=== PATIENT | female | born 1945 | race African-American/Black ===

== ENCOUNTER 2021-10-30 12:24 | Inpatient (IN) | payer MEDICARE, OTHER ==
[~2021-10-30] VITALS: Ht 154.9 cm; Wt 68.5 kg
[2021-10-30] MEDS ORDERED: MORPHINE SULFATE 4 MG/ML CPJ (NOT FOR IM USE) IV STA (12:46)
[2021-10-30 13:21] LABS: HEMATOCRIT. 35.3 % (36.0-48.0); HEMOGLOBIN. 11.8 g/dL (12.0-16.0); MEAN CORPUSCULAR HEMOGLOBIN 30.2 pg (28.0-32.0); MEAN CORPUSCULAR VOLUME 90.4 fL (81.0-99.0); PLATELET 308 x1000/uL (130-400); RED CELL DISTRIBUTION WIDTH 16.7 % (11.6-14.6)
[2021-10-30 13:26] LABS: CHLORIDE 98 mEq/L (98-107)
[2021-10-30 13:47] LABS: PLATELET ESTIMATE NORMAL
[2021-10-30] MEDS ORDERED: MORPHINE SULFATE 4 MG/ML CPJ (NOT FOR IM USE) IV ONE (18:00)
[2021-10-30 22:05] VITALS: BP 141/66
[2021-10-30 22:07] VITALS: BP 141/66
[2021-10-30] MEDS ORDERED: DEXTROSE 50% WATER 50ML SYRINGE IV PRN (23:30)
[2021-10-30] MEDS ORDERED: NALOXONE HCL 0.4MG/ML VIAL IV PRN (23:45)
[2021-10-31] VITALS: BP 124/66
[2021-10-31] MEDS: MORPHINE SULFATE 2 MG/ML CPJ (NOT FOR IM USE) IV PRN ×4 (00:11→20:45)
[2021-10-31] MEDS ORDERED: HYDR25TA MT (01:30)
[2021-10-31] MEDS ORDERED: MECO10005 (01:30)
[2021-10-31] MEDS ORDERED: SIMV10TA97 MT (01:30)
[2021-10-31] MEDS ORDERED: GABA-532 PO (01:30)
[2021-10-31] MEDS ORDERED: ASPI-1497 PO (01:30)
[2021-10-31] MEDS ORDERED: BENA20TA10 PO (01:30)
[2021-10-31] MEDS ORDERED: METF-414 MT (01:30)
[2021-10-31] MEDS: DEXT 5%/0.45% NACL 1000ML 1,000 ML IV SCH ×2 (01:43→12:50)
[2021-10-31 04:00] VITALS: BP 129/78
[2021-10-31] MEDS: BLOOD SUGAR DIAGNOSTIC STRIP TEST SCH ×4 (06:41→21:21)
[2021-10-31] MEDS: INSULIN LISPRO 100 UNITS/ML SUBCUT SCH ×4 (07:50→21:00)
[2021-10-31 08:00] VITALS: BP 123/74
[2021-10-31] MEDS: GABAPENTIN 100MG CAPSULE PO SCH ×2 (09:00→16:35)
[2021-10-31] MEDS: ASPIRIN 81MG TABLET PO SCH (09:00)
[2021-10-31] MEDS: CYANOCOBALAMIN 100MCG TABLET PO SCH (09:00)
[2021-10-31] MEDS ORDERED: CEFTRIAXONE 1 G PREMIX 50 ML IV SCH (11:30)
[2021-10-31 12:00] VITALS: BP 142/79
[2021-10-31] MEDS: CEFTRIAXONE 1,000 MG in DEXTROSE 5% WATER 50 ML IV SCH (12:51)
[2021-10-31 15:53] LABS: BASOPHILS % 0.2 % (0.0-2.0); EOSINOPHILS % 1.2 % (0.0-5.0); HEMATOCRIT. 34.1 % (36.0-48.0); HEMOGLOBIN. 11.7 g/dL (12.0-16.0); LYMPHOCYTES % 10.2 % (20.0-50.0); MEAN CORPUSCULAR HEMOGLOBIN 30.8 pg (28.0-32.0); MEAN CORPUSCULAR VOLUME 89.8 fL (81.0-99.0); MEAN PLATELET VOLUME 7.5 fl (7.4-10.4); MONOCYTES % 6.9 % (2.0-8.0); NEUTROPHILS % 81.5 % (40.0-76.0); PLATELET 273 x1000/uL (130-400); RED CELL DISTRIBUTION WIDTH 16.7 % (11.6-14.6)
[2021-10-31 15:58] LABS: PROTHROMBIN TIME 10.4 sec (9.6-11.0)
[2021-10-31 16:00] VITALS: BP 125/67
[2021-10-31 16:05] LABS: CHLORIDE 98 mEq/L (98-107)
[2021-10-31 16:19] LABS: HDL CHOLESTEROL 127 mg/dL (40-59); LDL CHOLESTEROL 54 mg/dL (5-100)
[2021-10-31] MEDS: ENOXAPARIN 40MG/0.4ML SYR SUBCUT SCH (16:34)
[2021-10-31 20:00] VITALS: BP 140/85
[2021-10-31] MEDS: AMITRIPTYLINE 25MG TABLET PO SCH (21:20)
[2021-10-31] MEDS: FAMOTIDINE 20MG TABLET PO SCH (21:20)
[2021-11-01] VITALS: BP 140/84
[2021-11-01] MEDS: DEXT 5%/0.45% NACL 1000ML 1,000 ML IV SCH ×2 (01:09→13:13)
[2021-11-01 04:00] VITALS: BP 121/81
[2021-11-01] MEDS: BLOOD SUGAR DIAGNOSTIC STRIP TEST SCH ×4 (06:33→21:07)
[2021-11-01] MEDS: INSULIN LISPRO 100 UNITS/ML SUBCUT SCH ×4 (07:50→21:00)
[2021-11-01 08:00] VITALS: BP 116/69
[2021-11-01 08:38] LABS: BASOPHILS % 0.2 % (0.0-2.0); EOSINOPHILS % 2.9 % (0.0-5.0); HEMATOCRIT. 33.9 % (36.0-48.0); HEMOGLOBIN. 11.6 g/dL (12.0-16.0); LYMPHOCYTES % 18.3 % (20.0-50.0); MEAN CORPUSCULAR HEMOGLOBIN 31.3 pg (28.0-32.0); MEAN CORPUSCULAR VOLUME 91.5 fL (81.0-99.0); MEAN PLATELET VOLUME 7.4 fl (7.4-10.4); MONOCYTES % 9.1 % (2.0-8.0); NEUTROPHILS % 69.5 % (40.0-76.0); PLATELET 262 x1000/uL (130-400); RED CELL DISTRIBUTION WIDTH 16.8 % (11.6-14.6)
[2021-11-01] MEDS: CYANOCOBALAMIN 100MCG TABLET PO SCH (09:35)
[2021-11-01] MEDS: GABAPENTIN 100MG CAPSULE PO SCH ×2 (09:35→17:41)
[2021-11-01] MEDS: CEFTRIAXONE 1,000 MG in DEXTROSE 5% WATER 50 ML IV SCH (12:46)
[2021-11-01] MEDS: MORPHINE SULFATE 2 MG/ML CPJ (NOT FOR IM USE) IV PRN (19:17)
[2021-11-01 20:00] VITALS: BP 118/74
[2021-11-01] MEDS: AMITRIPTYLINE 25MG TABLET PO SCH (21:06)
[2021-11-01] MEDS: FAMOTIDINE 20MG TABLET PO SCH (21:07)
[2021-11-02] VITALS: BP 103/71
[2021-11-02] MEDS: DEXT 5%/0.45% NACL 1000ML 1,000 ML IV SCH ×2 (02:58→15:00)
[2021-11-02 04:00] VITALS: BP 129/81
[2021-11-02 06:25] LABS: BASOPHILS % 0.5 % (0.0-2.0); EOSINOPHILS % 3.2 % (0.0-5.0); HEMATOCRIT. 34.6 % (36.0-48.0); HEMOGLOBIN. 11.7 g/dL (12.0-16.0); LYMPHOCYTES % 20.8 % (20.0-50.0); MEAN CORPUSCULAR HEMOGLOBIN 31.3 pg (28.0-32.0); MEAN CORPUSCULAR VOLUME 92.6 fL (81.0-99.0); MEAN PLATELET VOLUME 7.2 fl (7.4-10.4); MONOCYTES % 8.6 % (2.0-8.0); NEUTROPHILS % 66.9 % (40.0-76.0); PLATELET 264 x1000/uL (130-400); RED BLOOD CELL COUNT 3.74 mill/uL (4.2-5.4); RED CELL DISTRIBUTION WIDTH 16.2 % (11.6-14.6)
[2021-11-02] MEDS: INSULIN LISPRO 100 UNITS/ML SUBCUT SCH ×4 (07:50→21:00)
[2021-11-02 08:00] VITALS: BP 114/61
[2021-11-02] MEDS: BLOOD SUGAR DIAGNOSTIC STRIP TEST SCH ×4 (08:06→21:02)
[2021-11-02] MEDS: GABAPENTIN 100MG CAPSULE PO SCH ×2 (09:00→17:00)
[2021-11-02] MEDS: CYANOCOBALAMIN 100MCG TABLET PO SCH (09:00)
[2021-11-02] MEDS ORDERED: FENTANYL CITRATE/PF 50MCG/ML 2ML VIAL ONE ×2 (10:15→10:16)
[2021-11-02] MEDS ORDERED: ROCURONIUM BROMIDE 10MG/ML VIAL 5ML IV ONE (10:15)
[2021-11-02] MEDS ORDERED: NEOSTIGMINE METHYLSULFATE 1MG/ML 10 ML VIAL ONE (10:15)
[2021-11-02] MEDS ORDERED: PHENYLEPHRINE HCL 10 MG/ML 1ML (IV VIAL) IV ONE (10:16)
[2021-11-02] MEDS ORDERED: SUCCINYLCHOLINE CHLORIDE 200MG/10ML IV ONE (10:16)
[2021-11-02] MEDS ORDERED: GLYCOPYRROLATE 0.2 MG/ML 2ML VIAL ONE (10:16)
[2021-11-02] MEDS ORDERED: SODIUM CHLORIDE 0.9% 10ML VIAL ONE (10:16)
[2021-11-02] MEDS ORDERED: MIDAZOLAM HCL 2 MG/2 ML VIAL ONE (10:16)
[2021-11-02] MEDS ORDERED: CEFAZOLIN SODIUM 1000MG/VIAL ONE (10:16)
[2021-11-02] MEDS ORDERED: ONDANSETRON HCL 4MG/2ML INJ ONE (10:16)
[2021-11-02] MEDS ORDERED: METOCLOPRAMIDE HCL 10MG/2ML VIAL ONE (10:16)
[2021-11-02] MEDS ORDERED: PROPOFOL 200MG/20ML VIAL IV ONE (10:16)
[2021-11-02] MEDS ORDERED: LIDOCAINE HCL/EPINEPHRINE 1%-EPI 1:100,000 20 ML VIAL ONE ×2 (10:27→10:28)
[2021-11-02] MEDS ORDERED: MORPHINE SULFATE/PF 1MG/ML 10ML AMP ONE (10:27)
[2021-11-02] MEDS ORDERED: ROPIVACAINE HCL 10MG/ML 20 ML VIAL EPI ONE (10:28)
[2021-11-02] MEDS ORDERED: EPINEPHRINE 1:1000 1 MG/ML AMP ONE (10:28)
[2021-11-02] MEDS ORDERED: BUPIVACAINE HCL/PF 0.5% (5MG/ML) 10ML ONE (10:28)
[2021-11-02] MEDS ORDERED: KETOROLAC 30MG/ML VIAL ONE (10:28)
[2021-11-02] MEDS ORDERED: POLYMYXIN B SULFATE 500000 UNITS/VIAL ONE (10:29)
[2021-11-02] MEDS ORDERED: VANCOMYCIN HCL 1 GM/VIAL ONE (10:29)
[2021-11-02] MEDS ORDERED: TRANEXAMIC ACID 1,000 MG in SODIUM CHLORIDE 0.9% 100 ML IV NR ×2 (11:00→12:00)
[2021-11-02] MEDS ORDERED: SKIN ADHESIVE 0.7 GM EA TOP ONE (11:47)
[2021-11-02] MEDS ORDERED: MEPERIDINE HCL/PF 25MG/ML CPJ IV PRN ×2 (12:00)
[2021-11-02] MEDS ORDERED: SODIUM CHLORIDE 0.9% 1,000 ML IV ONE (12:00)
[2021-11-02] MEDS ORDERED: HYDROMORPHONE HCL/PF 2MG/ML CPJ IV PRN (12:00)
[2021-11-02] MEDS ORDERED: ONDANSETRON HCL 4MG/2ML INJ IV PRN (12:00)
[2021-11-02] MEDS ORDERED: MORPHINE SULFATE 2 MG/ML CPJ (NOT FOR IM USE) IV PRN (12:00)
[2021-11-02] MEDS ORDERED: CEFAZOLIN 1000MG PREMIX 50 ML IV SCH (12:15)
[2021-11-02] MEDS ORDERED: LABETALOL HCL 5MG/ML VIAL 20ML IV ONE (12:23)
[2021-11-02] MEDS ORDERED: LABETALOL 5MG/ML SYR 20 MG/4 ML SYRINGE IV NR (12:30)
[2021-11-02] MEDS: CEFTRIAXONE 1,000 MG in DEXTROSE 5% WATER 50 ML IV SCH (13:00)
[2021-11-02 14:14] LABS: BG BASE EXCESS -4.3 mmol/L (-2.0-2.0); BG CARBOXYHEMOGLOBIN 0.3 % (0.5-1.5); BG HCO3 ACT 21.2 mmol/L (22.0-26.0); BG METHEMOGLOBIN 0.3 % (0.0-1.5); BG OXYHEMOGLOBIN 98.4 % (94.0-97.0); BG PCO2 40.6 mmHg (35.0-45.0); BG PH 7.336 (7.350-7.450); BG PO2 215.7 mmHg (75.0-100.0); BG SAMPLE SITE RIGHT BRACHIAL; BG TOTAL HEMOGLOBIN 10.8 g/dL (12.0-18.0); BG VENT MODE MASK - SIMPLE
[2021-11-02] MEDS ORDERED: MAGNESIUM 2 G PREMIX 50 ML IV NR (17:00)
[2021-11-02] MEDS: METOPROLOL TARTRATE 25MG TABLET PO SCH ×2 (17:00→21:00)
[2021-11-02] MEDS: CEFAZOLIN 1000MG PREMIX 50 ML IV SCH (18:04)
[2021-11-02 18:15] VITALS: BP 133/63
[2021-11-02 20:00] VITALS: BP 94/50
[2021-11-02] MEDS: FAMOTIDINE 20MG TABLET PO SCH (21:32)
[2021-11-02] MEDS: AMITRIPTYLINE 25MG TABLET PO SCH (21:32)
[2021-11-03] VITALS: BP 122/50
[2021-11-03] MEDS: DEXT 5%/0.45% NACL 1000ML 1,000 ML IV SCH ×2 (03:49→15:05)
[2021-11-03] MEDS: CEFAZOLIN 1000MG PREMIX 50 ML IV SCH ×3 (03:49→20:56)
[2021-11-03 04:00] VITALS: BP 90/50
[2021-11-03] MEDS: BLOOD SUGAR DIAGNOSTIC STRIP TEST SCH ×4 (07:20→20:39)
[2021-11-03] MEDS: INSULIN LISPRO 100 UNITS/ML SUBCUT SCH ×4 (07:50→21:00)
[2021-11-03 08:06] VITALS: BP 129/62
[2021-11-03] MEDS: METOPROLOL TARTRATE 25MG TABLET PO SCH ×2 (08:54→20:39)
[2021-11-03] MEDS: GABAPENTIN 100MG CAPSULE PO SCH ×2 (08:54→16:54)
[2021-11-03] MEDS: CYANOCOBALAMIN 100MCG TABLET PO SCH (08:54)
[2021-11-03 12:15] VITALS: BP 92/44
[2021-11-03] MEDS: CEFTRIAXONE 1,000 MG in DEXTROSE 5% WATER 50 ML IV SCH (15:04)
[2021-11-03 16:04] VITALS: BP 136/87
[2021-11-03 20:00] VITALS: BP 91/59
[2021-11-03] MEDS: FAMOTIDINE 20MG TABLET PO SCH (20:38)
[2021-11-03] MEDS: AMITRIPTYLINE 25MG TABLET PO SCH (20:38)
[2021-11-03 20:43] LABS: BASOPHILS % 0.2 % (0.0-2.0); EOSINOPHILS % 3.8 % (0.0-5.0); HEMATOCRIT. 28.7 % (36.0-48.0); HEMOGLOBIN. 9.8 g/dL (12.0-16.0); LYMPHOCYTES % 18.1 % (20.0-50.0); MEAN CORPUSCULAR HEMOGLOBIN 31.1 pg (28.0-32.0); MEAN CORPUSCULAR VOLUME 91.6 fL (81.0-99.0); MEAN PLATELET VOLUME 7.2 fl (7.4-10.4); MONOCYTES % 11.3 % (2.0-8.0); NEUTROPHILS % 66.6 % (40.0-76.0); PLATELET 286 x1000/uL (130-400); RED BLOOD CELL COUNT 3.13 mill/uL (4.2-5.4); RED CELL DISTRIBUTION WIDTH 16.2 % (11.6-14.6)
[2021-11-04] VITALS: BP 102/64
[2021-11-04 04:00] VITALS: BP 111/65
[2021-11-04] MEDS: CEFAZOLIN 1000MG PREMIX 50 ML IV SCH ×2 (04:05→11:41)
[2021-11-04] MEDS: BLOOD SUGAR DIAGNOSTIC STRIP TEST SCH ×4 (06:45→20:48)
[2021-11-04 07:35] LABS: BASOPHILS % 0.2 % (0.0-2.0); EOSINOPHILS % 3.9 % (0.0-5.0); HEMATOCRIT. 26.2 % (36.0-48.0); LYMPHOCYTES % 18.7 % (20.0-50.0); MEAN CORPUSCULAR HEMOGLOBIN 31.2 pg (28.0-32.0); MEAN CORPUSCULAR VOLUME 91.3 fL (81.0-99.0); MEAN PLATELET VOLUME 7.1 fl (7.4-10.4); MONOCYTES % 12.1 % (2.0-8.0); NEUTROPHILS % 65.1 % (40.0-76.0); PLATELET 262 x1000/uL (130-400); RED BLOOD CELL COUNT 2.87 mill/uL (4.2-5.4)
[2021-11-04 07:36] VITALS: BP 111/64
[2021-11-04] MEDS: INSULIN LISPRO 100 UNITS/ML SUBCUT SCH ×4 (07:50→20:56)
[2021-11-04] MEDS: METOPROLOL TARTRATE 25MG TABLET PO SCH (08:24)
[2021-11-04] MEDS: CYANOCOBALAMIN 100MCG TABLET PO SCH (08:32)
[2021-11-04] MEDS: GABAPENTIN 100MG CAPSULE PO SCH ×2 (08:32→17:26)
[2021-11-04 12:12] VITALS: BP 91/53
[2021-11-04] MEDS: CEFTRIAXONE 1,000 MG in DEXTROSE 5% WATER 50 ML IV SCH (13:29)
[2021-11-04 16:15] VITALS: BP 122/78
[2021-11-04] MEDS: ENOXAPARIN 40MG/0.4ML SYR SUBCUT SCH (17:27)
[2021-11-04 20:00] VITALS: BP 115/67
[2021-11-04] MEDS: AMITRIPTYLINE 25MG TABLET PO SCH (20:49)
[2021-11-04] MEDS: FAMOTIDINE 20MG TABLET PO SCH (20:49)
[2021-11-04] MEDS: METOPROLOL TARTRATE 50MG TABLET PO SCH (20:50)
[2021-11-05 00:07] VITALS: BP 116/65
[2021-11-05 04:00] VITALS: BP 133/71
[2021-11-05] MEDS: BLOOD SUGAR DIAGNOSTIC STRIP TEST SCH ×4 (06:26→21:00)
[2021-11-05 06:47] LABS: BASOPHILS % 0.3 % (0.0-2.0); EOSINOPHILS % 5.2 % (0.0-5.0); HEMATOCRIT. 26.7 % (36.0-48.0); LYMPHOCYTES % 18.7 % (20.0-50.0); MEAN CORPUSCULAR HEMOGLOBIN 31.4 pg (28.0-32.0); MEAN CORPUSCULAR VOLUME 92.7 fL (81.0-99.0); MEAN PLATELET VOLUME 7.2 fl (7.4-10.4); MONOCYTES % 11.7 % (2.0-8.0); NEUTROPHILS % 64.1 % (40.0-76.0); PLATELET 272 x1000/uL (130-400); RED BLOOD CELL COUNT 2.88 mill/uL (4.2-5.4); RED CELL DISTRIBUTION WIDTH 16.2 % (11.6-14.6)
[2021-11-05] MEDS: INSULIN LISPRO 100 UNITS/ML SUBCUT SCH ×4 (07:50→21:00)
[2021-11-05 08:00] VITALS: BP 109/68
[2021-11-05] MEDS: GABAPENTIN 100MG CAPSULE PO SCH ×2 (08:49→17:14)
[2021-11-05] MEDS: METOPROLOL TARTRATE 50MG TABLET PO SCH ×2 (08:49→22:14)
[2021-11-05] MEDS: CYANOCOBALAMIN 100MCG TABLET PO SCH (08:49)
[2021-11-05 12:00] VITALS: BP 100/55
[2021-11-05] MEDS ORDERED: ACETAMINOPHEN 325MG TABLET PO PRN (12:30)
[2021-11-05] MEDS: CEFTRIAXONE 1,000 MG in DEXTROSE 5% WATER 50 ML IV SCH (12:37)
[2021-11-05 16:00] VITALS: BP 121/75
[2021-11-05] MEDS: ENOXAPARIN 30MG/0.3ML SYR SUBCUT SCH (17:14)
[2021-11-05 20:00] VITALS: BP 126/73
[2021-11-05] MEDS: AMITRIPTYLINE 25MG TABLET PO SCH (22:14)
[2021-11-05] MEDS: FAMOTIDINE 20MG TABLET PO SCH (22:14)
[2021-11-06 04:00] VITALS: BP 124/75
[2021-11-06] MEDS: INSULIN LISPRO 100 UNITS/ML SUBCUT SCH ×4 (07:14→21:00)
[2021-11-06 07:20] LABS: BASOPHILS % 0.4 % (0.0-2.0); EOSINOPHILS % 4.9 % (0.0-5.0); HEMATOCRIT. 26.4 % (36.0-48.0); HEMOGLOBIN. 9.2 g/dL (12.0-16.0); LYMPHOCYTES % 21.2 % (20.0-50.0); MEAN CORPUSCULAR VOLUME 91.6 fL (81.0-99.0); MONOCYTES % 10.1 % (2.0-8.0); NEUTROPHILS % 63.4 % (40.0-76.0); PLATELET 304 x1000/uL (130-400); RED BLOOD CELL COUNT 2.88 mill/uL (4.2-5.4); RED CELL DISTRIBUTION WIDTH 15.9 % (11.6-14.6)
[2021-11-06 08:00] VITALS: BP 124/74
[2021-11-06] MEDS: BLOOD SUGAR DIAGNOSTIC STRIP TEST SCH ×4 (08:13→21:39)
[2021-11-06] MEDS: METOPROLOL TARTRATE 50MG TABLET PO SCH ×2 (08:14→22:05)
[2021-11-06] MEDS: CYANOCOBALAMIN 100MCG TABLET PO SCH (08:14)
[2021-11-06] MEDS: GABAPENTIN 100MG CAPSULE PO SCH ×2 (08:14→16:57)
[2021-11-06] MEDS ORDERED: SODIUM POLYSTYRENE SULFONATE 15 G/60 ML BOT PO SCH (10:00)
[2021-11-06 12:25] VITALS: BP 106/62
[2021-11-06] MEDS ORDERED: HYDROCODONE/ACETAMINOPHEN 5/325MG TABLET PO PRN (14:00)
[2021-11-06 16:10] VITALS: BP 110/64
[2021-11-06] MEDS: ENOXAPARIN 30MG/0.3ML SYR SUBCUT SCH (16:57)
[2021-11-06 20:00] VITALS: BP 142/84
[2021-11-06] MEDS: AMITRIPTYLINE 25MG TABLET PO SCH (22:05)
[2021-11-06] MEDS: FAMOTIDINE 20MG TABLET PO SCH (22:05)
[2021-11-07] VITALS: BP 109/72
[2021-11-07 04:00] VITALS: BP 133/64
[2021-11-07] MEDS: BLOOD SUGAR DIAGNOSTIC STRIP TEST SCH ×3 (06:07→17:15)
[2021-11-07] MEDS: INSULIN LISPRO 100 UNITS/ML SUBCUT SCH ×3 (06:52→17:24)
[2021-11-07 07:30] LABS: BASOPHILS % 0.4 % (0.0-2.0); EOSINOPHILS % 5.4 % (0.0-5.0); HEMATOCRIT. 27.5 % (36.0-48.0); HEMOGLOBIN. 9.4 g/dL (12.0-16.0); LYMPHOCYTES % 25.3 % (20.0-50.0); MEAN CORPUSCULAR HEMOGLOBIN 31.7 pg (28.0-32.0); MEAN CORPUSCULAR VOLUME 92.9 fL (81.0-99.0); MEAN PLATELET VOLUME 7.3 fl (7.4-10.4); MONOCYTES % 10.1 % (2.0-8.0); NEUTROPHILS % 58.8 % (40.0-76.0); PLATELET 312 x1000/uL (130-400); RED BLOOD CELL COUNT 2.96 mill/uL (4.2-5.4); RED CELL DISTRIBUTION WIDTH 16.1 % (11.6-14.6)
[2021-11-07 08:04] VITALS: BP 134/70
[2021-11-07] MEDS: GABAPENTIN 100MG CAPSULE PO SCH ×2 (08:44→17:15)
[2021-11-07] MEDS: CYANOCOBALAMIN 100MCG TABLET PO SCH (08:45)
[2021-11-07] MEDS: METOPROLOL TARTRATE 50MG TABLET PO SCH (08:45)
[2021-11-07] MEDS: ASPIRIN 81MG TABLET PO SCH (09:53)
[2021-11-07 12:00] VITALS: BP 104/62
[2021-11-07 16:10] VITALS: BP 136/68
[2021-11-07 16:52] VITALS: BP 136/68
[2021-11-07] MEDS: ENOXAPARIN 30MG/0.3ML SYR SUBCUT SCH (17:18)
== END 2021-11-07 20:40 | DRG 522 ==
LOC: ER 12:24 → 6EST 17:30 → EDBEDREQTM 17:45 → EDBEDREQ 17:45 → ENRESERV 20:36 → 6WST 11-02 17:33
PROVIDERS: ADMIT Internal Medicine; ATTEND Internal Medicine
PROC: 0SRR0JA Replacement of Right Hip Joint, Femoral Surface with Synthetic Substitute, Uncemented, Open Approach (ICD-10-PCS; principal; 2021-11-02)
DX: S72.011A Unspecified intracapsular fracture of right femur, initial encounter for closed fracture (principal); E87.1 Hypo-osmolality and hyponatremia; I47.1 Supraventricular tachycardia; D64.9 Anemia, unspecified; E11.40 Type 2 diabetes mellitus with diabetic neuropathy, unspecified; E78.5 Hyperlipidemia, unspecified; E86.0 Dehydration; I11.9 Hypertensive heart disease without heart failure; R26.89 Other abnormalities of gait and mobility; Z60.2 Problems related to living alone; Z20.822 Contact with and (suspected) exposure to COVID-19; Z79.84 Long term (current) use of oral hypoglycemic drugs; Z79.899 Other long term (current) drug therapy; Z90.710 Acquired absence of both cervix and uterus; Z79.82 Long term (current) use of aspirin
CPT/HCPCS: 36415; 36600; 71045; 72170; 73552; 80048; 80053; 80061; 82375; 82805; 82962; 83036; 83735; 84145; 84443; 84484; 85025; 86850; 86900; 87070; 87075; 87426; 88305; 88311; 93005; 93306; 93970; 97116; 97162; 97166; 97530; 97535; 99285; C1776; C1893; J0330; J0690; J0696; J1170; J1650; J1815; J1885; J2175; J2250; J2270; J2274; J2370; J2405; J2704; J2710; J2765; J2795; J3010; J3370; J3475; J3490; J7050; J7060